=== PATIENT | male | born 1975 | race Caucasian/White ===

== ENCOUNTER 2020-09-12 07:29 | Emergency (ER) | payer MEDICAID ==
[~2020-09-12] VITALS: Ht 177.8 cm; Wt 93.4 kg
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
[2020-09-12] MEDS ORDERED: IBUPROFEN 400 MG TABLET ONE (07:42)
[2020-09-12] MEDS ORDERED: HYDROCODONE/APAP 5/325MG TABLET ONE (07:42)
[2020-09-12] MEDS ORDERED: LIDOCAINE HCL/MPF 1% 30 ML VIAL IJ ONE (07:58)
[2020-09-12] MEDS ORDERED: IBUPROFEN 400 MG TABLET PO ONE (08:00)
[2020-09-12] MEDS ORDERED: HYDROCODONE/APAP 5/325MG TABLET PO ONE (08:00)
[2020-09-12] MEDS ORDERED: IBUP-1955 PO (08:14)
[2020-09-12] MEDS ORDERED: HYDR-3972 PO (08:14)
[2020-09-12] MEDS ORDERED: DOXY100T2 PO (08:14)
[2020-09-12 08:32] VITALS: BP 137/80
--- NOTE | 2020-09-12 09:05 | NUR ---
Patient discharged to home in stable condition. Written and verbal after care instructions given. Patient verbalizes understanding of instruction.
== END 2020-09-12 09:07 | disposition home or self-care (01) ==
LOC: ER 07:35
DX: M25.462 Effusion, left knee (principal); F17.200 Nicotine dependence, unspecified, uncomplicated; Z60.2 Problems related to living alone
CPT/HCPCS: 20611; 73564; 99284; J3490